=== PATIENT | female | born 1965 | race Two or more races ===

== ENCOUNTER 2018-09-28 23:30 | Emergency (ER) | payer MEDICAID ==
[~2018-09-28] VITALS: Ht 157.5 cm; Wt 77.1 kg
[2018-09-29 00:42] LABS: Basophils # (auto) 0.1 uL; Basophils % (auto) 0.5 % (0.0-2.0); Eosinophils # (auto) 0.1 uL; Eosinophils % (auto) 1.2 % (0.0-7.0); Lymphocytes % (auto) 19.5 % (10.0-50.0); Mean Corpuscular Hemoglobin 28.5 pg (28.0-32.0); Mean Corpuscular Hgb Conc. 33.4 g/dL (32.0-36.0); Mean Corpuscular Volume 85.4 fL (80.0-100.0); Monocytes # (auto) 0.9 uL; Monocytes % (auto) 8.5 % (0.0-12.0); Neutrophils # (auto) 7.3 uL; Neutrophils % (auto) 70.3 % (37.0-80.0); Platelet Count (auto) 321 10^3/uL (140-450); Red Blood Cells 4.57 10^6/uL (4.0-5.20); Red Cell Distribution Width 16.1 % (11.8-14.3); White Blood Cell 10.4 10^3/uL (4.4-10.8)
[2018-09-29 01:07] LABS: INR 0.97 (0.9-1.15); Prothrombin Time 10.4 sec (9.27-12.13)
[2018-09-29 01:11] LABS: Albumin 3.5 g/dL (3.4-5.0); BUN/Creatinine Ratio 13.6; Blood Alcohol < 3.0 mg/dL (0-5); Calcium 8.5 mg/dL (8.5-10.1); Magnesium 2.2 mg/dL (1.6-2.6); Potassium 3.6 mmol/L (3.5-5.1)
[2018-09-29 01:13] LABS: Bilirubin, Total 0.3 mg/dL (0.2-1.0)
[2018-09-29] MEDS ORDERED: SODIUM CHLORIDE 0.9% 1,000 ML IV ONE (01:15)
[2018-09-29] MEDS ORDERED: ONDANSETRON HCL 4 MG/2 ML VIAL IV ONE (01:15)
[2018-09-29 01:33] LABS: Lactic Acid w/Reflex 2.5 mmol/L (0.4-2.0)
[2018-09-29] MEDS ORDERED: SODIUM CHLORIDE 0.9% 2,300 ML IV ONE (01:45)
[2018-09-29 01:48] LABS: Amylase 27 U/L (25-115); Lipase 94 U/L (73-393)
[2018-09-29] MEDS ORDERED: VANCOMYCIN 1GM/250ML 250 ML IV ONE (02:00)
[2018-09-29 04:21] LABS: Alcohol, Urine < 3.0 mg/dL (0-5); Amphetamine Screen, Urine NEGATIVE (NEGATIVE); Barbiturate Scree,Urine NEGATIVE (NEGATIVE); Benzodiazephine Screen, Urine NEGATIVE (NEGATIVE); Cannabinoid Screen, Urine NEGATIVE (NEGATIVE); Cocaine Screen, Urine NEGATIVE (NEGATIVE); Opiate Scree,Urine NEGATIVE (NEGATIVE); Phencyclidine Screen, Urine NEGATIVE (NEGATIVE)
[2018-09-29 04:25] LABS: Urine Bacteria FEW /hpf (None Seen); Urine Blood Negative /uL (Negative); Urine Specific Gravity 1.007 (1.001-1.035); Urine WBC <1 /hpf (0 - 5)
[2018-09-29] MEDS ORDERED: PIPERACILLIN-TAZOB 3.375GM 100 ML IV SCH (06:00)
[2018-09-29 07:40] VITALS: BP 129/65
[2018-09-29] MEDS ORDERED: VANCOMYCIN 1GM/250ML 250 ML IV SCH ×2 (10:00→15:00)
[2018-09-30] MEDS ORDERED: VANCOMYCIN 1GM/250ML 250 ML IV SCH (02:00)
== END 2018-09-29 08:14 | disposition short-term general hospital (02) ==
LOC: EDBD 23:30 → ER 23:37
DX: G40.409 Other generalized epilepsy and epileptic syndromes, not intractable, without status epilepticus (principal); G93.9 Disorder of brain, unspecified; R79.89 Other specified abnormal findings of blood chemistry; N63.0 Unspecified lump in unspecified breast
CPT/HCPCS: 36415; 36600; 70450; 71045; 80053; 80307; 80320; 81001; 82150; 82550; 82805; 83605; 83690; 83735; 84484; 85025; 85384; 85610; 85730; 86850; 86900; 86901; 87040; 87086; 93005; 94761; 96361; 96365; 96366; 96367; 96375; 99285; J2405; J2543; J3370; J7030